=== PATIENT | male | born 1995 | race Caucasian/White ===

== ENCOUNTER 2020-12-15 13:02 | Emergency (ER) | payer OTHER ==
[~2020-12-15] VITALS: Ht 182.9 cm; Wt 58.1 kg
[2020-12-15] MEDS ORDERED: DOXYCYCLINE 10100 M2 PO (13:51)
[2020-12-15 14:02] VITALS: BP 116/74
== END 2020-12-15 14:02 | disposition home or self-care (01) ==
LOC: M.ERS 13:02
DX: S51.811A Laceration without foreign body of right forearm, initial encounter (principal); W26.0XXA Contact with knife, initial encounter; Y93.89 Activity, other specified; Y92.69 Other specified industrial and construction area as the place of occurrence of the external cause; Y99.9 Unspecified external cause status